=== PATIENT | male | born 1965 | race Caucasian/White ===

== ENCOUNTER 2021-08-25 18:23 | Emergency (ER) | payer OTHER, SELFPAY ==
[2021-08-25 18:30] VITALS: BP 149/84; PULSE 95; RESP 16; TEMP 37; O2SAT 96
--- NOTE | 2021-08-25 18:41 | ED.GENADULT ---
HPI - General Adult General Chief complaint: Urogenital-Male Stated complaint: UTI SYMPTOMS Time Seen by Provider: 08/25/21 18:25 Source: patient Mode of arrival: ambulatory Limitations: no limitations History of Present Illness HPI narrative: 56 y/o male. PMHx: HLD. Presents to [facility] this evening with acute complaints of urinary frequency and dysuria for the past 72 hours. He endorses also abnormal 'clear' penile discharge. Client is concerned for venereal disease, reporting an unprotected sexual encounter prior to manifestation onset. Denies fever. No abdominal pain, flank pain, testicular or penile pain or swelling. No N/V. No hematuria. Client is without additional acute c/o illness upon PE. Related Data Home Medications Medication Instructions Recorded Confirmed allopurinol 08/25/21 emtricitabine-tenofovir (TDF) tablet 08/25/21 [Truvada] simvastatin mg 08/25/21 testosterone [Testosterone Aqueous] mg IM 08/25/21 Allergies Allergy/AdvReac Type Severity Reaction Status Date / Time No Known Allergies Allergy Verified 08/25/21 18:28 Review of Systems Review of Systems: CONSTITUTIONAL: Denies fever, chills, sweats. EYES: Denies visual changes, redness, discharge. ENT: Denies rhinorrhea, congestion, sore throat, otalgia. CARDIOVASCULAR: Denies chest pain, palpitations, edema. RESPIRATORY: Denies dyspnea, wheezing, cough GASTROINTESTINAL: Denies abdominal pain, nausea, vomiting, diarrhea. GENITOURINARY: Positive dysuria & abnormal discharge. No hematuria. SKIN: Denies rash or itching. MUSCULOSKELETAL: Denies acute back pain, joint pain, or myalgia. NEUROLOGIC: Denies numbness, or focal weakness. PSYCHIATRIC: Denies anxiety or depression. All systems reviewed & are unremarkable except as noted in HPI and below Exam Narrative: GENERAL: This is a well-nourished, well-developed adult, in no apparent distress. HEAD: normocephalic, atraumatic. EARS: External ears normal. NOSE: External nose normal. THROAT: Mucous membranes moist. NECK: Neck supple. CARDIOVASCULAR: Regular rate and rhythm without murmurs, gallops, or rubs. RESPIRATORY: Clear to auscultation. Breath sounds equal bilaterally. No wheezes, rales, or rhonchi. GASTROINTESTINAL: Abdomen soft, non-tender, nondistended. Bowel sounds are active. No guarding. No CVA tenderness. SKIN: warm, intact with no suspicious lesions or rash, good texture and turgor. NEURO: No focal neurologic deficits. Course Vital Signs Vital signs: Vital Signs Temperature 37.0 C 08/25/21 18:30 Pulse Rate 95 08/25/21 18:30 Respiratory Rate 16 08/25/21 18:30 Blood Pressure 149/84 H 08/25/21 18:30 Pulse Oximetry 96 08/25/21 18:30 Temperature 37.0 C 08/25/21 18:30 Pulse Rate 95 08/25/21 18:30 Respiratory Rate 16 08/25/21 18:30 Blood Pressure 149/84 H 08/25/21 18:30 Pulse Oximetry 96 08/25/21 18:30 The patient has been informed that they may have pre-hypertension or Hypertension based on a BP reading in the clinic. It is recommended that the patient call the primary care provider listed on their discharge instructions or a physician of their choice as soon as possible (within 1-2week) to arrange follow up for further evaluation of possible pre-hypertension or hypertension. Medical Decision Making MDM Narrative Medical decision making narrative: -Urinalysis reveals 1+ Leukocytes and Trace Lysed blood , no gross bleeding. -No testicular or penile pain or swelling, appears non-toxic. -Treated with recommended State STI Medication regimen in clinic, resume oral Flagyl PO BID X 7 days in AM for additional potential Trichomonas coverage. -GC/Chlamydia & Trichomonas specimens: Send out for additional analysis. Pt to be notified with these results. -Safe sex practices reviewed and advised. -PCP F/U. -ER W/Emergent health status changes. Pt agrees. Differential Diagnosis Differential Diagnosis: Differential Diagn
[2021-08-25] MEDS: cefTRIAXone 500 MG, LIDOCAINE HCL 1% LOCAL INJ 1 ML IM (18:53)
[2021-08-25] MEDS: AZITHROMYCIN 250 MG TABLET 1000 MG PO (19:00)
== END 2021-08-25 19:15 | disposition home or self-care (01) ==
PROVIDERS: Emergency Provider Nurse Practitioner Adult Health
DX: R30.0 Dysuria (principal)
CPT/HCPCS: 81003; 87491; 87591; 87661; 96360; 99203; A9270; G0463; J0696

== ENCOUNTER 2021-11-18 16:56 | Emergency (ER) | payer OTHER, SELFPAY ==
[2021-11-18 17:01] VITALS: BP 152/95; PULSE 83; RESP 16; TEMP 36.7; O2SAT 100
--- NOTE | 2021-11-18 17:07 | ED.MALEGU ---
HPI - Male Genitourinary General Chief complaint: Urogenital-Male Stated complaint: UTI SYMPTOMS Time Seen by Provider: 11/18/21 17:08 Source: patient and RN notes reviewed Mode of arrival: ambulatory Limitations: no limitations History of Present Illness HPI Narrative: 56 year old male who presents to express care with complaints of penis discharge which is uncomfortable. Patient reports that he has whitish to light yellow discharge, denies any known fevers, chills, or sweats. Patient reports that he was treated in August and partner was also treated and thought everything was clear till symptoms started again. Patient states that it is uncomfortable to urinate denies any acute testicle pain or swelling. patient was treated for STD in August 2021 also. MD Complaint: penile discharge, dysuria and possible STD exposure Onset (ago): day(s) (3-4 days) Location: penis Related Data Home Medications Medication Instructions Recorded Confirmed allopurinol 100 mg PO DAILY 08/25/21 11/18/21 emtricitabine-tenofovir (TDF) 1 tablet PO DAILY 08/25/21 11/18/21 [Truvada] simvastatin 20 mg PO DAILY 08/25/21 11/18/21 testosterone [Testosterone Aqueous] 100 mg IM 2XW 08/25/21 11/18/21 sildenafil (pulm.hypertension) 20 mg PO PRN PRN 11/18/21 11/18/21 Allergies Allergy/AdvReac Type Severity Reaction Status Date / Time No Known Allergies Allergy Verified 11/18/21 17:07 Review of Systems Review of Systems: CONSTITUTIONAL: Denies fever, chills, or sweats. EYES: Denies visual changes, redness, or discharge. ENT: Denies rhinorrhea, congestion, sore throat, or otalgia. CARDIOVASCULAR: Denies chest pain, palpitations, or edema. RESPIRATORY: Denies cough or dyspnea. GASTROINTESTINAL: Denies abdominal pain, nausea, vomiting, or diarrhea. GENITOURINARY: Positive for dysuria no hematuria, positive for white yellow penis drainage SKIN: Denies rash or itching. MUSCULOSKELETAL: Denies back pain, joint pain, or myalgia. NEUROLOGIC: Denies headache, numbness, or weakness. PSYCHIATRIC: Denies anxiety or depression. All systems reviewed & are unremarkable except as noted in HPI and below [facility] Past Medical History Medical History (Updated 11/18/21 @ 17:53 by Aretha Nicole NP) Elevated cholesterol Gout Kidney stones Social History Social History (Updated 11/18/21 @ 17:52 by Aretha Nicole NP) Smoking status: Never smoker Alcohol intake: current Alcohol use details: rare social Substance use: never Gender identity (if verbalized by the patient): Male Comments At time of signature, agree with nursing past medical, surgical, social and family history. There is no relevant family history pertinent to the presenting complaint Exam Narrative: GENERAL: Well-appearing, well-nourished, and in no acute distress. HEAD: Normocephalic, atraumatic. EYES: PERRLA and EOMI. ENT: Nares clear, no rhinorrhea or epistaxis. Mucous membranes moist.TM's normal with good light reflex, throat pink with no lesions or exudates. NECK: Supple. no lymphadenopathy CHEST: Clear to auscultation. No respiratory distress.SAO2 100% on room air HEART: Regular rate and rhythm. No murmur heard. Normal peripheral pulses. ABDOMEN: Soft, nontender, nondistended, normal active bowel sounds.States mild discomfort when urinates, penial discharge for past 3 days EXTREMITIES: Normal range of motion. No edema. SKIN: Warm, dry, no rash. NEURO: No focal deficits. Alert and oriented x3. Course Course Level of Care: Express Care Visit Vital Signs Vital signs: Vital Signs Temperature 36.7 C 11/18/21 17:01 Pulse Rate 83 11/18/21 17:01 Respiratory Rate 16 11/18/21 17:01 Blood Pressure 152/95 H 11/18/21 17:01 Pulse Oximetry 100 11/18/21 17:01 Temperature 36.7 C 11/18/21 17:01 Pulse Rate 83 11/18/21 17:01 Respiratory Rate 16 11/18/21 17:01 Blood Pressure 152/95 H 11/18/21 17:01 Pulse Oximetry 100 11/18/21 17:01 MDM - Male G
[2021-11-18] MEDS: cefTRIAXone 500 MG, LIDOCAINE HCL 1% LOCAL INJ 1 ML IM (17:27)
== END 2021-11-18 17:53 | disposition home or self-care (01) ==
PROVIDERS: Emergency Provider Registered Nurse
DX: Z20.2 Contact with and (suspected) exposure to infections with a predominantly sexual mode of transmission (principal); E78.00 Pure hypercholesterolemia, unspecified; M10.9 Gout, unspecified
CPT/HCPCS: 87491; 87591; 87661; 96372; 99213; G0463; J0696

== ENCOUNTER 2022-12-24 22:46 | Emergency (ER) | payer OTHER, SELFPAY ==
--- NOTE | ~2022-12-24 | CT_ITS ---
EXAMINATION: CT abdomen pelvis wo con DATE: 12/25/2022 00:43 INDICATION: Right flank pain. TECHNIQUE: Computed tomography (CT) of the abdomen and pelvis was performed without intravenous contr ast. Automated exposure control and iterative reconstruction technique were employed. The dose-length product was 259.26 mGy-cm. COMPARISON: CT abdomen and pelvis 03/08/2018 FINDINGS: The visualized portions of the lung bases demonstrate mild atelectasis. No pleural effusion . The heart size is normal. No pericardial effusion. Pneumobilia is noted, likely secondary to sphinc terotomy. There are cysts in the kidneys measuring up to 15 mm. There are changes of cholecystectomy. The spleen, pancreas, and adrenal glands are normal. There are 4 stones in right kidney measuring up to 4 mm. There is mild right hydronephrosis. There is a 6 mm stone in proximal right ureter. There a re 3 stones in the left kidney measuring up to 4 mm. There is a left inguinal hernia containing fat. The prostate is severely enlarged. There is diverticulosis of the colon without evidence of diverticu litis. The appendix is normal. There is a small sliding hiatal hernia. There are no pathologically en larged lymph nodes. There is an umbilical hernia containing fat. There are no pathologically enlarged lymph nodes. There is no free intraperitoneal fluid. There is severe lumbar spondylosis. There is mi ld chronic anterior wedging of L2 vertebral body. IMPRESSION: 1. 6 mm stone in proximal right ureter with mild right hydronephrosis. 2. Bilateral nonobstructing kidney stones. Reviewed, dictated and finalized at location A.
[2022-12-24 22:48] VITALS: BP 144/73; PULSE 65; RESP 18; TEMP 36.6; O2SAT 100
--- NOTE | 2022-12-25 00:10 | ED.MALEGU ---
HPI - Male Genitourinary General Chief complaint: Urogenital-Male Stated complaint: kidney stone Time Seen by Provider: 12/24/22 23:51 History of Present Illness HPI Narrative: Patient is a 57-year-old male with a history of kidney stones here for evaluation of right flank pain, nausea and difficulty pushing out urine for the past several hours. He states that he has had similar symptoms with previous kidney stones, previous have required lithotripsy. He denies any fevers, chills, vomiting, abdominal pain or blood in his urine. States that his last kidney stone was over 10 years ago. He attempted Percocet and Flomax at home without relief of his symptoms. Related Data Home Medications Medication Instructions Recorded Confirmed allopurinol 100 mg tablet 100 mg PO DAILY 08/25/21 11/18/21 emtricitabine 200 mg-tenofovir 1 tablet PO DAILY 08/25/21 11/18/21 disoproxil fumarate 300 mg tablet (Truvada) simvastatin 20 mg tablet 20 mg PO DAILY 08/25/21 11/18/21 testosterone 100 mg/mL 100 mg IM 2XW 08/25/21 11/18/21 intramuscular suspension sildenafil (pulm.hypertension) 20 20 mg PO PRN PRN Erectile 11/18/21 11/18/21 mg tablet Dysfunction Allergies Allergy/AdvReac Type Severity Reaction Status Date / Time No Known Allergies Allergy Verified 11/18/21 17:07 Review of Systems Review of Systems: Gen.: Denies fevers or chills Eyes: Denies eye pain or visual change ENT: Denies congestion Respiratory: Denies shortness of breath or cough CV: Denies chest pain or palpitations GI: Reports nausea but no vomiting denies burning, urgency, frequency or hematuria Musculoskeletal: Reports flank pain. Denies back pain or muscle pain Neuro: Denies numbness, tingling, weakness or focal weakness Skin: Denies rash Except as documented, all other systems reviewed and negative [facility] Past Medical History Medical History Elevated cholesterol Gout Kidney stones Social History Social History (Updated 11/18/21 @ 17:52 by Aretha Nicole NP) Smoking status: Never smoker Alcohol intake: current Alcohol use details: rare social Substance use: never Gender identity (if verbalized by the patient): Male Exam Narrative: APPEARANCE: Well appearing, no pain in distress, well-nourished. Head: Normocephalic and atraumatic. EYES: PERRLA/EOMI, conjunctivae clear NOSE: No nasal drainage EARS: External ear normal in appearance THROAT: Oropharynx is clear. Mucous membranes are moist. NECK: Supple. No adenopathy, no masses. RESPIRATORY: Airway patent, respirations nonlabored. Clear to auscultation bilaterally, no rales, rhonchi, wheezing. CARDIOVASCULAR: Regular rate and rhythm without murmurs, rubs, or gallops. ABDOMINAL: Normoactive bowel sounds. Soft, nontender, nondistended. No rebound tenderness or guarding. MUSCULOSKELETAL: No CVA tenderness. Extremities are warm and well-perfused. Moves all extremities well. No edema. NEURO: Normal speech. No focal neurologic deficits. SKIN: Skin is warm and dry. No rashes. PSYCHIATRIC: Normal affect/mood. Course Vital Signs Vital signs: Vital Signs Temperature 97.8 F 12/24/22 22:48 Pulse Rate 65 12/24/22 22:48 Respiratory Rate 18 12/24/22 22:48 Blood Pressure 144/73 H 12/24/22 22:48 Pulse Oximetry 100 12/24/22 22:48 Oxygen Delivery Room Air 12/24/22 22:48 Temperature 97.8 F 12/24/22 22:48 Pulse Rate 65 12/24/22 22:48 Respiratory Rate 18 12/24/22 22:48 Blood Pressure 144/73 H 12/24/22 22:48 Pulse Oximetry 100 12/24/22 22:48 Oxygen Delivery Room Air 12/24/22 22:48 MDM - Male Genitourinary MDM Narrative Medical decision making narrative: 57 year old male with a history of kidney stones here for evaluation of right flank pain x 1 day a/w nausea and urinary retention. Similar to hx of previous stones. VSS. He is nontoxic in appearance, has normal vital signs and no CVA te
[2022-12-25] MEDS: MORPHINE SULFATE (*CRX) 4 MG/ML INJ IV PUSH (00:20)
[2022-12-25 00:33] LABS: Basophils Absolute Auto 0.1 K/mm3 (0.0-0.1); Basophils Percent Auto 1.2 % (0.2-1.2); Eosinophils Absolute Auto 0.1 K/mm3 (0-0.3); Eosinophils Percent Auto 1.3 % (0-4.4); Hemoglobin 15.8 g/dL (14.0-18.0); Immature Granulocyte Absolute 0.02 K/mm3 (0.00-0.031); Immature Granulocyte Percent A 0.2 % (0-0.5); Lymphocytes Absolute Auto 2.19 K/mm3 (0.9-3.2); Lymphocytes Percent Auto 25.6 % (18.3-44.2); Mean Corpuscular HGB Conc 32.9 g/dl (32-36); Mean Corpuscular Hemoglobin 33.5 pg (26-34); Mean Corpuscular Volume 101.9 fl (80-100); Mean Platelet Volume 10.5 fl (7.4-10.4); Monocytes Absolute Auto 0.6 K/mm3 (0.1-0.6); Neutrophils Absolute Auto 5.5 K/mm3 (1.3-6.7); Neutrophils Percent Auto 64.7 % (45.5-73.1); Platelet Count Result 244 k/mm3 (150-375); Red Blood Count 4.71 M/mm3 (4.6-6.20); Red Cell Distribution Width 11.9 % (11.5-14.5); White Blood Count 8.5 K/mm3 (4.5-10.0)
[2022-12-25 01:04] LABS: Anion Gap 5 mmol/L (8-16); Blood Urea Nitrogen 19 mg/dL (9-20); Calcium 8.8 mg/dL (8.4-10.2); Carbon Dioxide 36 mmol/L (22-30); Chloride 97 mmol/L (98-107); Estimated Glomerular Filt Rate > 60; Glucose 115 mg/dL (65-110); Potassium 3.7 mmol/L (3.4-5.0); Sodium 138 mmol/L (137-145)
[2022-12-25] MEDS: HYDROmorphone HCL INJ (*CRX) 1 MG/ML SYR 0.5 MG IV PUSH (01:47)
[2022-12-25] MEDS: SODIUM CHLORIDE 0.9% IV 1,000 ML 999 ML IV CONT (02:08)
[2022-12-25] MEDS: HYDROmorphone HCL INJ (*CRX) 1 MG/ML SYR IV PUSH (02:23)
[2022-12-25 03:01] LABS: Appearance Urine Clear (Clear); Bacteria Urine None Seen /hpf; Bilirubin Urine Negative (Negative); Blood Urine Trace (Negative); Color Urine Yellow (Yellow); Glucose Urine UA Negative (Negative); Ketones Urine Negative (Negative); Leukocyte Esterase Ur Negative LEU/UL (Negative); Nitrate Urine Negative (Negative); Non Pathogenic Casts 0-2; Protein Urine Trace mg/dL (Negative); RBC Urine 0-2 /hpf (0-2); Specific Grav Ur 1.011 (1.001-1.035); Squamous Epithelial Cell Urine None seen /hpf (Few); Urobilinogen Urine 0.2 mg/dL (<2.0); WBC Urine 0-5 /hpf
[2022-12-25 03:07] LABS: Add Urine Microscopic? YES
== END 2022-12-25 03:20 | disposition home or self-care (01) ==
PROVIDERS: Emergency Provider Physician Assistant
DX: N13.2 Hydronephrosis with renal and ureteral calculous obstruction (principal); E78.00 Pure hypercholesterolemia, unspecified; M10.9 Gout, unspecified; Z87.442 Personal history of urinary calculi
CPT/HCPCS: 36415; 74176; 80048; 81001; 85025; 96374; 96375; 96376; 99284; J1170; J2270; J7030